=== PATIENT | male | born 1985 | race Caucasian/White ===

== ENCOUNTER → 2018-08-22 | Outpatient (CLI) | payer OTHER ==
[~2018-08-22] MED LIST: ALBU8.5H IH; CETI-176 PO; FLUT1AER INH; FLUT1DIS28 IH; LISI-362 PO; LISI5TAB25 PO
--- NOTE | 2018-08-23 15:07 | RADIOLOGY IMAGING REPORT ---
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 COMPARISON: None FINDINGS: Cardiomediastinal contours: The heart size is normal. Lungs and pleura: There is no finding of an infiltrate, lymphadenopathy or pleural effusion. Bones/soft tissues: There are no findings of a fracture. IMPRESSION: 1. No active disease in the chest. No findings of calcified parenchymal lesions or calcified lymph nodes to suggest prior granulomatous disease. Report Dictated By: Matti Salmon MD at 08/23/2018 3:00 PM Report E-Signed By: Matti Salmon MD at 08/23/2018 3:01 PM WSN:[id number]
== END ==
LOC: RAD 08:49
PROVIDERS: ATTEND Internal Medicine
DX: R76.11 Nonspecific reaction to tuberculin skin test without active tuberculosis (principal)
CPT/HCPCS: 71046

== ENCOUNTER → 2018-08-23 | Outpatient (CLI) | payer OTHER ==
[2018-08-23 16:35] LABS: PLATELET COUNT, AUTOMATED 263 K/uL (150-450)
== END ==
LOC: LAB 14:52
PROVIDERS: ATTEND Internal Medicine
DX: J45.909 Unspecified asthma, uncomplicated (principal); I10 Essential (primary) hypertension; R76.11 Nonspecific reaction to tuberculin skin test without active tuberculosis
CPT/HCPCS: 82040; 82247; 82310; 82374; 82435; 82565; 82947; 84075; 84132; 84155; 84295; 84450; 84460; 84520; 85025; 86480